=== PATIENT | male | born 1980 | race Caucasian/White ===

== ENCOUNTER 2018-03-30 18:46 | Emergency (ER) | payer BC ==
[2018-03-30 18:58] VITALS: BP 139/99
--- NOTE | 2018-03-30 20:51 | EDM.PDOC ---
ED HPI GENERAL MEDICAL PROBLEM - General Chief Complaint: Allergic Reaction Stated Complaint: BEE STING Time Seen by Provider: 03/30/18 19:10 Source of Information: Reports: Patient History Limitations: Reports: No Limitations - History of Present Illness INITIAL COMMENTS - FREE TEXT/NARRATIVE: This man was stung on the ankle by a wasp about 20 min [employer] division [employer]. He's had previous reactions and carries an epipen. From his description he had local reactions and maybe some very mild generalized symptoms but never a full blown anaphylactic reaction. He denies any difficulty breathing or swallowing. No itching. Right Lower Leg Pain Score (Numeric/FACES): 4 - Related Data Allergies Allergy/AdvReac Type Severity Reaction Status Date / Time venom-honey bee Allergy Anaphylactic Verified 03/30/18 19:00 [bee venom (honey bee)] Shock Home Meds: Home Meds Omeprazole 40 mg PO DAILY 02/08/15 [History] Simvastatin 40 mg PO DAILY 02/08/15 [History] EPINEPHrine [Epinephrine] 0.3 mg SUBCUT ASDIRECTED PRN 02/26/15 [History] Fluticasone Propionate [Flonase] 1 spray NS DAILY PRN 02/26/15 [History] Past Medical History HEENT History: Reports: Allergic Rhinitis Cardiovascular History: Reports: High Cholesterol Gastrointestinal History: Reports: GERD Other Musculoskeletal History: hand - Infectious Disease History Infectious Disease History: Reports: Chicken Pox Social & Family History - Tobacco Use Smoking Status *Q: Never Smoker - Caffeine Use Caffeine Use: Reports: Coffee - Recreational Drug Use Recreational Drug Use: No ED ROS ALLERGIC REACTION - Review of Systems Review Of Systems: ROS reveals no pertinent complaints other than HPI. ED EXAM GENERAL NO PERIP PULSE - Physical Exam Exam: See Below Exam Limited By: No Limitations General Appearance: Alert, WD/WN, No Apparent Distress Eye Exam: Bilateral Eye: Normal Inspection Nose: Normal Inspection Throat/Mouth: Normal Inspection, No Airway Compromise Head: Atraumatic Neck: Normal Inspection Respiratory/Chest: Lungs Clear Cardiovascular: Regular Rate, Rhythm GI/Abdominal: Soft Extremities: Other (moderate local reaction to ankle. unceratin which side.) Skin Exam: Other (Just a few wheals about 5 mm and small red patches to chest. Looks like very early urticaria) Course - Vital Signs Last Recorded V/S: Last Vital Signs Temp 36.4 C 03/30/18 18:53 Pulse 85 03/30/18 18:53 Resp 18 03/30/18 18:53 BP 139/99 H 03/30/18 18:53 Pulse Ox 97 03/30/18 18:53 - Re-Assessments/Exams Free Text/Narrative Re-Assessment/Exam: 03/30/18 21:01 He received benadryl 50 mg im and solumedrol 125 mg im. After about 45 min the redness is abating. No change in resp status. He feels much better. He has an epipen in his pocket and is with now wo should be safe to go home. Did not require epi. Departure - Departure Time of Disposition: 20:42 Disposition: Home, Self-Care 01 Condition: Fair Clinical Impression: Bee sting reaction - Discharge Information Referrals: PCP,None [Primary Care Provider] - Forms: ED Department Discharge Additional Instructions: This was as very early generalized reaction that could have gone on to a full anaphylactic reaction but it was stopped with early medication. Take benadryl 50 mg 4 times daily for the next 2-3 days. Also take prednisone 40 mg daily for the next 5 days. Keep the epipen handy. If the reaction comes back then return to the ER. Use the Epipen if needed on the way to the ER.
== END 2018-03-30 21:25 | disposition home or self-care (01) ==
LOC: JP.ED 18:46
DX: T63.441A Toxic effect of venom of bees, accidental (unintentional), initial encounter (principal); E78.00 Pure hypercholesterolemia, unspecified; Z79.899 Other long term (current) drug therapy
CPT/HCPCS: 99283